=== PATIENT | female | born 1950 | race Caucasian/White ===

== ENCOUNTER 2017-12-18 08:42 | Emergency (ER) | payer OTHER ==
[~2017-12-18] VITALS: Ht 160 cm; Wt 89.3 kg
[2017-12-18 09:23] LABS: BASOPHIL (%) 0.8 % (0-1); BASOPHIL COUNT 0.1 K/uL (0-0.1); EOSINOPHIL (%) 2.6 % (0-5); EOSINOPHIL COUNT 0.2 K/uL (0-0.3); HEMATOCRIT 39.2 % (36.0-46.0); HEMOGLOBIN 12.9 G/DL (11.9-15.5); IMMATURE GRANULOCYTE (%) 0.5 % (0.0-0.7); LYMPHOCYTE (%) 27.3 % (15-42); LYMPHOCYTE COUNT 1.8 K/uL (1.0-2.8); MCH 28.7 PG (29.0-34.0); MCHC 32.9 G/DL (30.0-36.0); MCV 87.3 FL (83-99); MONOCYTE (%) 8.2 % (3-12); MONOCYTE COUNT 0.5 K/uL (0-0.8); NEUTROPHIL (%) 60.6 % (45-76); NEUTROPHIL COUNT 3.9 K/uL (1.8-6.4); PLATELET COUNT 355 K/uL (156-360); RBC DIS.WIDTH-CV 13.2 % (11.8-14.6); RBC DIS.WIDTH-SD 41.6 % (39-53); RED BLOOD COUNT 4.49 M/uL (3.80-5.20); WHITE BLOOD COUNT 6.5 K/uL (4.1-10.2)
[2017-12-18 09:30] LABS: CHLORIDE 109 mEq/L (99-109); POTASSIUM 4.5 mEq/L (3.7-5.4); SODIUM 145 mEq/L (136-147)
[2017-12-18 09:32] LABS: GLUCOSE 97 mg/dL (70-99)
[2017-12-18 09:36] LABS: CREATININE 0.8 mg/dL (0.6-1.3); GFR ESTIMATE (CALCULATED) > 59 mL/min/
[2017-12-18 09:37] LABS: UREA NITROGEN (BUN) 14 mg/dL (9-23)
[2017-12-18 11:07] LABS: C DIFF TOXIN NEGATIVE (NEGATIVE)
[2017-12-18] MEDS ORDERED: OMEPRAZOLE20 MG PO (11:39)
[2017-12-18] MEDS ORDERED: COZAAR50 MG PO (11:43)
[2017-12-18] MEDS ORDERED: LOVASTATIN20 MG PO (11:44)
[2017-12-18] MEDS ORDERED: ADULT ASPIRIN81 MG PO (11:45)
[2017-12-18] MEDS ORDERED: ALLEGRA ALLERG180 MG PO (11:47)
[2017-12-18] MEDS ORDERED: IMODIUM A-D2 M2 PO (12:04)
[2017-12-18 12:19] VITALS: BP 169/93
== END 2017-12-18 12:19 | disposition home or self-care (01) ==
LOC: EME 08:42
PROVIDERS: Emergency Medicine
DX: R19.7 Diarrhea, unspecified (principal); K21.9 Gastro-esophageal reflux disease without esophagitis; E78.5 Hyperlipidemia, unspecified; I10 Essential (primary) hypertension; E11.9 Type 2 diabetes mellitus without complications
CPT/HCPCS: 80048; 85025; 87493; 99281; 99284